=== PATIENT | female | born 1975 | race Hispanic/Latino ===

== ENCOUNTER 2017-04-28 20:51 | Emergency (ER) | payer OTHER ==
[2017-04-28 20:58] VITALS: BP 153/85; PULSE 85; RESP 16; TEMP 97.7; O2SAT 99
[2017-04-28] MEDS ORDERED: Sterile Water 10 ML IV ONE (21:47)
--- NOTE | 2017-04-28 21:51 | ED PDOC ---
HPI: Abdomen Time Seen by Provider: 04/28/17 21:14 Chief Complaint (Nursing): Abdominal Pain Chief Complaint (Provider): Epigastric Pain, Nausea and Vomiting History Per: Patient History/Exam Limitations: no limitations Onset/Duration Of Symptoms: Hrs Outside of [place] travel?: No Current Symptoms Are (Timing): Still Present Context: Food Location Of Pain/Discomfort: Epigastric Associated Symptoms: denies: Urinary Symptoms Additional Complaint(s): Florence Pepper, a 41 year old female, presents to the ED with epigastric pain nausea and vomiting. The patient states she has been vomiting all day today and has had at least six episodes. She describes the epigastric pain as "fullness" or a "severe hunger pain" The patient reports that everytime she eats , she vomits and it it food colored(non bloody). She states she has been very stressed at work due to a stressful project. The patient denies urinary symptoms and states she has had normal bowel movements. Also, she has reported that she has been drinking much more alcohol than usual. Past Medical History Reviewed: Historical Data, Nursing Documentation, Vital Signs Vital Signs: Last Vital Signs Temp 97.7 F 04/28/17 20:57 Pulse 85 04/28/17 20:57 Resp 16 04/28/17 20:57 BP 153/85 H 04/28/17 20:57 Pulse Ox 99 04/28/17 22:10 - Medical History PMH: No Chronic Diseases - Family History Family History: States: Unknown Family Hx - Home Medications Home Medications: Ambulatory Orders Medication Instructions Recorded Simethicone/Sod Bicarb/Cit Ac 1 each PO BID #10 pack 04/29/17 [E-Z-GAS II EFF Granules] - Allergies Allergies/Adverse Reactions: Allergies Allergy/AdvReac Type Severity Reaction Status Date / Time No Known Allergies Allergy Verified 04/28/17 20:56 Review of Systems Gastrointestinal: Positive for: Nausea, Vomiting, Abdominal Pain (Epigastric pain) Genitourinary Female: Positive for: Hematuria, Other (Denies all urinary symptoms) Physical Exam - Reviewed Nursing Documentation Reviewed: Yes Vital Signs Reviewed: Yes - Physical Exam Appears: Positive for: Non-toxic, No Acute Distress Head Exam: Positive for: ATRAUMATIC, NORMOCEPHALIC Skin: Positive for: Normal Color, Warm, Dry Eye Exam: Positive for: Normal appearance, EOMI, PERRL ENT: Positive for: Normal ENT Inspection Neck: Positive for: Normal, Painless ROM, Supple Cardiovascular/Chest: Positive for: Regular Rate, Rhythm, Chest Non Tender. Negative for: Tachycardia Respiratory: Positive for: Normal Breath Sounds, Accessory Muscle Use. Negative for: Wheezing, Respiratory Distress Gastrointestinal/Abdominal: Positive for: Soft, Tenderness (Mild tenderness to palpation to epigastrium.). Negative for: Guarding, Rebound Back: Positive for: Normal Inspection Extremity: Positive for: Normal ROM. Negative for: Tenderness, Deformity, Swelling Neurologic/Psych: Positive for: Alert, Oriented, Gait - Laboratory Results Result Diagrams: 04/28/17 21:45 04/28/17 21:45 - ECG O2 Sat by Pulse Oximetry: 99 (RA) Pulse Ox Interpretation: Normal Medical Decision Making Medical Decision Makin:14 Initial Impression: 41 year old female presenting with Gastritis vs Pancreatitis vs Coleolithiasis Initial Plan: * : Alcohol serum * CMP * Lipase * Upreg * Udip * CBC * Protonix 40mg IVP * Zofran inj * Urinalysis * US Gallbladder and Pancreas U/S negative, after giving bicarb/citric acid/simethicone, pt. initially did not have adequate response, gave morphine 2mg which helped slightly, but soon after patient had a large belch and felt much improved. Now tolerating PO and feeling much better, will cancel CT and d/c patient home. Return precautions given. Scribe Attestation Documented by Reena Baca acting as a scribe for Aravind Ching MD. Scribe Attestation All medical record entries made by the Scribe were at my direction and personally dictated by me. I have reviewed the chart and agree that the record accurately reflects my personal performance of the history, physical exam, medical decision making, and the department course for this patient. I have also personally directed, reviewed, and agree with the discharge instructions and disposition. Disposition - Clinical Impression Clinical Impression: Bloating - Patient ED Disposition Is Patient to be Admitted: No - Disposition Referrals: [facility] [Outside] Disposition: Routine/Home Disposition Time: 01:20 Condition: IMPROVED Prescriptions: Simethicone/Sod Bicarb/Cit Ac [E-Z-GAS II EFF Granules] 1 each PO BID #10 pack Instructions: Acute Abdominal Pain (ED), Gas and Bloating (ED)
[2017-04-28] MEDS ORDERED: Sodium Chloride 0.9% 1,000 ML IV STA (21:55)
[2017-04-28 22:00] LABS: RBC URINE 5 /hpf (0-3); URINE BILIRUBIN NEGATIVE (NEGATIVE); URINE BLOOD NEGATIVE (NEGATIVE); URINE COLOR YELLOW (YELLOW); URINE GLUCOSE (UA) NEG (Normal); URINE KETONE NEGATIVE (NEGATIVE); URINE LEUKOCYTE ESTERASE TRACE Leu/uL (Negative); URINE PROTEIN NEGATIVE (NEGATIVE); URINE UROBILINOGEN 0.2-1.0 mg/dL (0.2-1.0); WBC URINE 3 /hpf (0-5)
[2017-04-28 22:03] LABS: BASO # 0.1 K/uL (0.0-0.2); BASO % 0.9 % (0.0-2.0); EOS # 0.4 K/uL (0.0-0.7); EOS % 4.3 % (0.0-4.0); HEMATOCRIT 42.6 % (34.0-47.0); LYMPH # 2.5 K/uL (1.0-4.3); MEAN CELL VOLUME 93.3 fl (81.0-99.0); MEAN CORPUSCULAR HEMOGLOBIN 31.3 pg (27.0-31.0); MEAN CORPUSCULAR HGB CONC 33.5 g/dL (33.0-37.0); MEAN PLATELET VOLUME 6.8 fl (7.2-11.7); MONO # 0.6 K/uL (0.0-0.8); NEUT % 58.8 % (50.0-75.0); NRBC % 0.2 % (0.0-0.0); RED CELL DISTRIBUTION WIDTH 13.1 % (11.5-14.5); WHITE BLOOD COUNT 8.5 K/uL (4.8-10.8)
[2017-04-28 22:08] LABS: ALB/GLOB RATIO 1.6 (1.0-2.1); ALCOHOL SERUM < 10 mg/dl (0-10); ALKALINE PHOSPHATASE 55 U/L (38-126); ALT/SGPT 49 U/L (9-52); AST/SGOT 33 U/L (14-36); BILIRUBIN,TOTAL 0.5 mg/dl (0.2-1.3); BLOOD UREA NITROGEN 20 mg/dl (7-17); CALCIUM 9.9 mg/dL (8.4-10.2); CARBON DIOXIDE 25 mmol/L (22-30); CHLORIDE 101 mmol/L (98-107); GFR AFRICAN-AMERICAN > 60; GLUCOSE,RANDOM 91 mg/dL (65-105); LIPASE 84 U/L (23-300); POTASSIUM 3.9 MMOL/L (3.6-5.0); SODIUM 138 mmol/l (132-148); TOTAL PROTEIN 7.6 G/DL (6.3-8.2)
[2017-04-29] MEDS ORDERED: Alum-Mag Hydrox-Simethicone Susp (30 mL) PO ONE (00:07)
[2017-04-29] MEDS ORDERED: Iohexol 240 (50 ml) PO ONE (00:23)
--- NOTE | 2017-04-29 09:50 | US ---
HISTORY: epigastric, RUQ pain COMPARISON: None. TECHNIQUE: Sonographic evaluation of the abdomen. FINDINGS: LIVER: Measures 15.9 cm. Normal echogenicity of the liver parenchyma. No intrahepatic bile duct dilatation. GALLBLADDER: The gallbladder is not abnormally distended. There is no gallbladder wall edema or pericholecystic fluid. No shadowing or echogenic calculus identified. According to the technologist, the sonographic Leon's sign was not present. COMMON BILE DUCT: Measures 4-5 mm. No stones. No dilatation. PANCREAS: Visualized portions of the pancreas appear unremarkable. RIGHT KIDNEY: Measures 11.4 x 5.2 x 4cm. Normal echogenicity. No calculus, mass, or hydronephrosis. LEFT KIDNEY: Not imaged. SPLEEN: Not imaged. AORTA: No aneurysmal dilatation within the visualized segments of the aorta. IVC: The visualized portions of the IVC appear unremarkable. OTHER FINDINGS: The visualized segments of the portal vein appear patent. IMPRESSION: No acute findings. Please note that this report is in general agreement with the preliminary report provided by [facility].
== END 2017-04-29 01:10 | disposition home or self-care (01) ==
LOC: H.ER 20:51
DX: R10.11 Right upper quadrant pain (principal); R14.0 Abdominal distension (gaseous)

== ENCOUNTER 2017-12-16 08:22 | Emergency (ER) | payer OTHER ==
[2017-12-16 08:50] VITALS: BP 117/77; PULSE 68; RESP 18; TEMP 98.4; O2SAT 100
[2017-12-16 08:51] VITALS: BMI 25.4
--- NOTE | 2017-12-16 09:18 | ED PDOC ---
HPI: Abdomen Time Seen by Provider: 12/16/17 08:46 Chief Complaint (Nursing): Abdominal Pain Chief Complaint (Provider): Abdominal Pain History Per: Patient History/Exam Limitations: no limitations Onset/Duration Of Symptoms: Days (x 2) Current Symptoms Are (Timing): Still Present Additional Complaint(s): Florence is a 42 year old female who presents to the emergency department complaining of lower abdominal pain x 2 days. Patient states pain is not associated with nausea, vomiting or diarrhea. Denies fever, urinary symptoms or blood in stool. Patient states last menstrual period was 2 weeks ago. PMD: Pallay Past Medical History Reviewed: Historical Data, Nursing Documentation, Vital Signs Vital Signs: Last Vital Signs Temp 98.4 F 12/16/17 08:54 Pulse 68 12/16/17 08:54 Resp 18 12/16/17 08:54 BP 117/77 12/16/17 08:54 Pulse Ox 100 12/16/17 11:48 - Medical History PMH: Asthma, Seizures - Surgical History Surgical History: No Surg Hx - Family History Family History: States: Unknown Family Hx - Home Medications Home Medications: Ambulatory Orders Medication Instructions Recorded traMADol [Ultram] 50 mg PO Q8 #10 tab 12/16/17 - Allergies Allergies/Adverse Reactions: Allergies Allergy/AdvReac Type Severity Reaction Status Date / Time No Known Allergies Allergy Verified 04/28/17 20:56 Review of Systems ROS Statement: Except As Marked, All Systems Reviewed And Found Negative Constitutional: Negative for: Fever Gastrointestinal: Negative for: Nausea, Vomiting, Diarrhea, Hematochezia Genitourinary Female: Negative for: Dysuria, Hematuria Physical Exam - Reviewed Nursing Documentation Reviewed: Yes Vital Signs Reviewed: Yes - Physical Exam Gastrointestinal/Abdominal: Positive for: Soft, Tenderness (Lower Quadrant bilaterally) Back: Negative for: L CVA Tenderness, R CVA Tenderness - Laboratory Results Result Diagrams: 12/16/17 09:10 12/16/17 09:10 - ECG O2 Sat by Pulse Oximetry: 100 (RA) Medical Decision Making Medical Decision Making: Time: 09:03 Plan: - CMP - CBC - Transvaginal Ultrasound - ED Urine Time: 11:22 Transvaginal Ultrasound FINDINGS: UTERUS: Measures 8.3 x 4.2 x 4.3 cm. The uterus is anteverted but normal in size with no discrete myometrial lesion appreciable. ENDOMETRIUM: Measures 9.0 mm in diameter. Unremarkable. CERVIX: Nabothian cysts identified with the cervix otherwise unremarkable. RIGHT OVARY: Measures 6.7 x 4.9 x 5.5 cm. The left ovary is enlarged by 2 complex cystic lesions, both of which appear hypoechoic and have a lace-like internal echoes suspicious for hemorrhagic cyst or possible endometriomas. Color Doppler blood flow was not demonstrated internally in the may represent hemorrhagic cysts. The more inferior measures 3.9 x 3.4 x 3.3 cm. The more superior measures 4.1 x 2.8 x 3.5 cm. LEFT OVARY: Measures 2.8 x 1.4 x 2.3 cm. No solid mass. Normal flow. FREE FLUID: No significant free fluid noted. OTHER FINDINGS: None. IMPRESSION: Enlarged right ovary is identified due to complex cyst suspicious for hemorrhagic cyst or possible endometriomas. Clinically correlate further. Follow -up transvaginal pelvic ultrasound is recommended in 4-8 weeks to demonstrate resolution of these findings or at least reduction in size. Discussed with Od/Workforce Planner Dr. Hernandez. Outpt f/u appropriate Scribe Attestation: Documented by Carlos Lucas, acting as a scribe for Smith Vaughn MD Provider Scribe Attestation: All medical record entries made by the Scribe were at my direction and personally dictated by me. I have reviewed the chart and agree that the record accurately reflects my personal performance of the history, physical exam, medical decision making, and the department course for this patient. I have also personally directed, reviewed, and agree with the discharge instructions and disposition. Disposition - Clinical Impression Clinical Impression: Ovarian cyst - Patient ED Disposition Is Patient to be Admitted: No - Disposition [facility] Disposition: Routine/Home Disposition Time: 11:55 Condition: FAIR Prescriptions: traMADol [Ultram] 50 mg PO Q8 #10 tab Instructions: Ovarian Cyst (ED) Forms: [employer] (Kyrgyz)
[2017-12-16 09:36] LABS: BASO % 0.5 % (0.0-2.0); EOS # 0.2 K/uL (0.0-0.7); HEMOGLOBIN 15.2 g/dL (12.0-16.0); LYMPH # 1.9 K/uL (1.0-4.3); LYMPH % 22.9 % (20.0-40.0); MEAN CELL VOLUME 93.9 fl (81.0-99.0); MEAN CORPUSCULAR HEMOGLOBIN 31.9 pg (27.0-31.0); MEAN PLATELET VOLUME 6.9 fl (7.2-11.7); MONO # 0.5 K/uL (0.0-0.8); MONO % 5.7 % (0.0-10.0); NEUT # 5.8 K/uL (1.8-7.0); NEUT % 68.9 % (50.0-75.0); NRBC % 0.3 % (0.0-0.0); RBC 4.76 Mil/uL (3.80-5.20); RED CELL DISTRIBUTION WIDTH 13.5 % (11.5-14.5); WHITE BLOOD COUNT 8.4 K/uL (4.8-10.8)
[2017-12-16 09:56] LABS: ALB/GLOB RATIO 1.4 (1.0-2.1); ALBUMIN 4.6 g/dL (3.5-5.0); ALT/SGPT 48 U/L (9-52); AST/SGOT 32 U/L (14-36); BLOOD UREA NITROGEN 19 mg/dl (7-17); CALCIUM 9.4 mg/dL (8.4-10.2); GFR AFRICAN-AMERICAN > 60; GFR NON-AFRICAN AMERICAN > 60
--- NOTE | 2017-12-16 11:24 | US ---
HISTORY: r/o cyst COMPARISON: None available. TECHNIQUE: Transvaginal pelvic ultrasound was performed with longitudinal and transverse images submitted for interpretation. FINDINGS: UTERUS: Measures 8.3 x 4.2 x 4.3 cm. The uterus is anteverted but normal in size with no discrete myometrial lesion appreciable. ENDOMETRIUM: Measures 9.0 mm in diameter. Unremarkable. CERVIX: Nabothian cysts identified with the cervix otherwise unremarkable. RIGHT OVARY: Measures 6.7 x 4.9 x 5.5 cm. The left ovary is enlarged by 2 complex cystic lesions, both of which appear hypoechoic and have a lace-like internal echoes suspicious for hemorrhagic cyst or possible endometriomas. Color Doppler blood flow was not demonstrated internally in the may represent hemorrhagic cysts. The more inferior measures 3.9 x 3.4 x 3.3 cm. The more superior measures 4.1 x 2.8 x 3.5 cm. LEFT OVARY: Measures 2.8 x 1.4 x 2.3 cm. No solid mass. Normal flow. FREE FLUID: No significant free fluid noted. OTHER FINDINGS: None. IMPRESSION: Enlarged right ovary is identified due to complex cyst suspicious for hemorrhagic cyst or possible endometriomas. Clinically correlate further. Follow-up transvaginal pelvic ultrasound is recommended in 4-8 weeks to demonstrate resolution of these findings or at least reduction in size.
== END 2017-12-16 12:00 | disposition home or self-care (01) ==
LOC: H.ER 08:22
DX: N83.209 Unspecified ovarian cyst, unspecified side (principal)
CPT/HCPCS: 76830; 80053; 81025; 85025; 96372; 99283; J1885

== ENCOUNTER 2018-01-23 09:19 | Emergency (ER) | payer OTHER ==
[2018-01-23 09:20] VITALS: BMI 25.4
[2018-01-23 09:40] VITALS: BP 126/83; PULSE 87; RESP 18; TEMP 98.3; O2SAT 99
--- NOTE | 2018-01-23 10:01 | ED PDOC ---
HPI: Female Pain Time Seen by Provider: 01/23/18 09:59 Chief Complaint (Nursing): Female Genitourinary Chief Complaint (Provider): abdominal pain History Per: Patient (42 y/o female h/o ovarian cyst/endometrioma here for evaluation of sudden onset lower abdominal pain that began during abdominal work out at gym. Notes LMP 2 weeks ago. Has had sx for removal of right side ovarian cyst 9cm 04/2017. Was seen 11/2017 and noted to have hemorrhagic ovarian cyst but repeat US noted improvement of right sided ovarian cyst and new cyst left side. Has appointment with specialist for endometriosis/ovarian cyst at [facility] tomorrow. Took tramadol at 9:30 with improvement of symptoms/pain. No fevers/chills/diarhrea.) Past Medical History Reviewed: Historical Data, Nursing Documentation, Vital Signs Vital Signs: Last Vital Signs Temp 98.3 F 01/23/18 09:37 Pulse 87 01/23/18 09:37 Resp 18 01/23/18 09:37 BP 126/83 01/23/18 09:37 Pulse Ox 99 01/23/18 09:37 - Medical History PMH: Asthma, Seizures - Family History Family History: States: Unknown Family Hx - Home Medications Home Medications: Ambulatory Orders Medication Instructions Recorded traMADol [Ultram] 50 mg PO Q8 #10 tab 12/16/17 Naproxen 375 mg PO Q8 PRN #21 tablet 01/23/18 - Allergies Allergies/Adverse Reactions: Allergies Allergy/AdvReac Type Severity Reaction Status Date / Time No Known Allergies Allergy Verified 04/28/17 20:56 Review of Systems ROS Statement: Except As Marked, All Systems Reviewed And Found Negative Gastrointestinal: Positive for: Abdominal Pain Physical Exam - Reviewed Nursing Documentation Reviewed: Yes Vital Signs Reviewed: Yes - Physical Exam Appears: Positive for: Well, Non-toxic, No Acute Distress (patient working on laptop in ED) Head Exam: Positive for: ATRAUMATIC, NORMAL INSPECTION, NORMOCEPHALIC Skin: Positive for: Normal Color, Warm, DRY Eye Exam: Positive for: EOMI, Normal appearance, PERRL ENT: Positive for: Normal ENT Inspection Neck: Positive for: Normal, Painless ROM Cardiovascular/Chest: Positive for: Regular Rate, Rhythm Respiratory: Positive for: CNT, Normal Breath Sounds Gastrointestinal/Abdominal: Positive for: Normal Exam, Bowel Sounds, Soft Back: Positive for: Normal Inspection Extremity: Positive for: Normal ROM Neurologic/Psych: Positive for: Alert, Oriented - Laboratory Results Result Diagrams: 01/23/18 10:35 01/23/18 10:35 Urine POC: Negative - ECG O2 Sat by Pulse Oximetry: 99 - Progress ED Course And Treament: us pelvis: IMPRESSION: Two simple fluid collections adjacent to right ovary where previously 2 complex cysts/cystic masses were identified. Likely resolving hemorrhagic ovarian/ paraovarian cyst. The remainder of the examination is unremarkable. Patient re-evaluated 4 hours post initial evaluation. Nontender abdomen. Will f/u with spud grader tomorrow. Disposition - Clinical Impression Clinical Impression: Ovarian cyst - Patient ED Disposition Is Patient to be Admitted: No - Disposition Disposition: Routine/Home Disposition Time: 13:25 Condition: FAIR Prescriptions: Naproxen 375 mg PO Q8 PRN #21 tablet PRN Reason: Pain, Moderate (4-7) Instructions: Ovarian Cysts Forms: [employer] (Irish), [facility] ED School/Work Excuse
[2018-01-23 10:51] LABS: BASO # 0.1 K/uL (0.0-0.2); BASO % 0.8 % (0.0-2.0); EOS # 0.2 K/uL (0.0-0.7); EOS % 2.7 % (0.0-4.0); HEMOGLOBIN 14.5 g/dL (12.0-16.0); LYMPH # 1.7 K/uL (1.0-4.3); LYMPH % 22.4 % (20.0-40.0); MEAN CELL VOLUME 94.1 fl (81.0-99.0); MEAN CORPUSCULAR HEMOGLOBIN 32.8 pg (27.0-31.0); MEAN CORPUSCULAR HGB CONC 34.8 g/dL (33.0-37.0); MEAN PLATELET VOLUME 6.9 fl (7.2-11.7); MONO # 0.5 K/uL (0.0-0.8); MONO % 6.2 % (0.0-10.0); NEUT % 67.9 % (50.0-75.0); NRBC % 0.2 % (0.0-0.0); RBC 4.43 Mil/uL (3.80-5.20); RED CELL DISTRIBUTION WIDTH 13.4 % (11.5-14.5); WHITE BLOOD COUNT 7.4 K/uL (4.8-10.8)
[2018-01-23 10:52] LABS: SQUAMOUS EPITHIAL 3 /hpf (0-5); URINE BACTERIA RARE (<OCC); URINE BILIRUBIN NEGATIVE (NEGATIVE); URINE BLOOD NEGATIVE (NEGATIVE); URINE CLARITY SLIGHTY-CLOUDY (Clear); URINE COLOR YELLOW (YELLOW); URINE GLUCOSE (UA) NEG (Normal); URINE LEUKOCYTE ESTERASE NEG Leu/uL (Negative); URINE NITRATE NEGATIVE (NEGATIVE); URINE PROTEIN 30 mg/dL (NEGATIVE); URINE UROBILINOGEN 0.2-1.0 mg/dL (0.2-1.0)
[2018-01-23 10:57] LABS: ALB/GLOB RATIO 1.4 (1.0-2.1); ALBUMIN 4.3 g/dL (3.5-5.0); ALT/SGPT 40 U/L (9-52); AST/SGOT 42 U/L (14-36); BLOOD UREA NITROGEN 22 mg/dl (7-17); CALCIUM 9.5 mg/dL (8.4-10.2); GFR AFRICAN-AMERICAN > 60; GFR NON-AFRICAN AMERICAN > 60
--- NOTE | 2018-01-23 12:23 | US ---
HISTORY: evaluate for ovarian cyst/ovarian torsion COMPARISON: 12/16/2017 TECHNIQUE: Transabdominal and transvaginal FINDINGS: UTERUS: Measures 7.9 x 4.5 x 3.1 cm. Normal in size and appearance. No fibroid or other mass lesion seen. ENDOMETRIUM: Measures 5 mm in diameter. Unremarkable. CERVIX: No cervical abnormality identified. RIGHT OVARY: Measures 3.8 x 3.1 x 2.6 cm. No solid mass. Normal flow. Adjacent to the right ovary there are 2 simple cysts or collections of simple fluid. These measure 4.5 x 4.3 x 2.2 cm and 2.0 x 1.3 x 1.2 cm. On prior examination of 12/16/2017, there were 2 complex right ovarian/paraovarian cysts identified. These appear to have resolved on this process most likely represents clearing of hemorrhagic cysts, either ovarian or paraovarian. LEFT OVARY: Measures 2.8 x 2.7 x 2.5 cm. No solid mass. Normal flow. FREE FLUID: No significant free fluid noted. OTHER FINDINGS: None. IMPRESSION: Two simple fluid collections adjacent to right ovary where previously 2 complex cysts/cystic masses were identified. Likely resolving hemorrhagic ovarian/ paraovarian cyst. The remainder of the examination is unremarkable.
== END 2018-01-23 14:27 | disposition home or self-care (01) ==
LOC: H.ER 09:19
DX: N83.201 Unspecified ovarian cyst, right side (principal); N83.202 Unspecified ovarian cyst, left side; J45.909 Unspecified asthma, uncomplicated

== ENCOUNTER 2019-01-11 17:21 | Emergency (ER) | payer BC, OTHER ==
[2019-01-11 17:22] VITALS: BMI 25.4
[2019-01-11 17:32] VITALS: BP 140/93; TEMP 97.9
[2019-01-11 17:50] VITALS: O2SAT 99
[2019-01-11 18:18] LABS: BASO # 0.1 K/uL (0.0-0.2); BASO % 0.9 % (0.0-2.0); EOS # 0.3 K/uL (0.0-0.7); EOS % 3.9 % (0.0-4.0); HEMOGLOBIN 14.6 g/dL (12.0-16.0); LYMPH # 2.5 K/uL (1.0-4.3); LYMPH % 30.7 % (20.0-40.0); MEAN CELL VOLUME 95.4 fl (81.0-99.0); MEAN CORPUSCULAR HGB CONC 33.6 g/dL (33.0-37.0); MEAN PLATELET VOLUME 6.8 fl (7.2-11.7); MONO # 0.6 K/uL (0.0-0.8); MONO % 6.9 % (0.0-10.0); NEUT # 4.6 K/uL (1.8-7.0); NEUT % 57.6 % (50.0-75.0); NRBC % 0.2 % (0.0-0.0); RBC 4.55 Mil/uL (3.80-5.20); RED CELL DISTRIBUTION WIDTH 13.6 % (11.5-14.5)
[2019-01-11 18:19] LABS: BLOOD UREA NITROGEN 20 mg/dl (7-17); CALCIUM 9.6 mg/dL (8.4-10.2); GFR NON-AFRICAN AMERICAN > 60
--- NOTE | 2019-01-11 20:17 | ED PDOC ---
- Laboratory Results Result Diagrams: 01/11/19 18:00 01/11/19 18:00 Lab Results: D-Dimer, Quantitative 385 ng/mlDDU (0-230) H 01/11/19 18:45 Troponin I < 0.0120 ng/mL (0.00-0.120) 01/11/19 18:00 - ECG O2 Sat by Pulse Oximetry: 99 Medical Decision Making Medical Decision Making: Time: 1999 --Patient is endorsed to provider by Dr. Benavides, pending US results and final disposition. 2299 --Patient's US negative --Results explained to patient, stressed need for followup --Evodental services discussed, advised outpatient followup --Very well appearing upon discharge Scribe Attestation: Documented by Lilliana Steele, acting as a scribe for Aravind Ching MD. Provider Scribe Attestation: All medical record entries made by the Scribe were at my direction and personally dictated by me. I have reviewed the chart and agree that the record accurately reflects my personal performance of the history, physical exam, medical decision making, and the department course for this patient. I have also personally directed, reviewed, and agree with the discharge instructions and disposition. Disposition - Clinical Impression Clinical Impression: Atypical chest pain - POA Present On Arrival: None - Disposition Referrals: [facility] [Outside] Disposition: Routine/Home Disposition Time: 23:00 Condition: IMPROVED Instructions: Chest Pain That Is Not Caused by the Heart (DC), Anxiety, Adult (DC) Forms: [email or web address] (Burmese)
--- NOTE | 2019-01-11 20:27 | ED PDOC ---
HPI: Chest Pain Time Seen by Provider: 01/11/19 17:43 Chief Complaint (Nursing): Chest Pain Chief Complaint (Provider): Chest Pain History Per: Patient History/Exam Limitations: no limitations Onset/Duration Of Symptoms: Hrs (x1 [employer]) Current Symptoms Are (Timing): Still Present Additional Complaint(s): 43 year old female with pmHx of epilepsy and anxiety, presents to ED for sudden chest pain and tightness, onset 1 hour prior to presentation. She reports associated dizziness, numbness and tingling sensation to left hand that radiated to arm and face. Patient states that symptoms feel similar to her anxiety attacks, however, her anxiety does not last as long nor had bilateral hand numbness and tingling. PCP: none provided NIHSS Stroke Scale - Date/Time Evaluation Performed Date Performed: 01/11/19 Time Performed: 17:45 When Was NIHSS Performed: Baseline - How Severe is the Stroke Level of Consciousness: 0=Alert LOC to Questions: 0=Both comments correct LOC to commands: 0=Obeys both correctly Best Gaze: 0=Normal Visual: 0=No visual loss Facial: 0=Normal Motor Arm - Left: 0=No drift Motor Arm - Right: 0=No drift Motor Leg - Left: 0=No drift Motor Leg - Right: 0=No drift Limb Ataxia: 0=Absent Sensory: 0=Normal Best Language: 0=No aphasia Dysarthia: 0=Normal articulation Extinction & Inattention (Neglect): 0=Normal, no object Score: 0 Past Medical History Reviewed: Historical Data, Nursing Documentation, Vital Signs Vital Signs: Last Vital Signs Temp 97.9 F 01/11/19 17:25 Pulse 95 H 01/11/19 17:45 Resp 12 01/11/19 17:45 BP 140/93 H 01/11/19 17:25 Pulse Ox 99 01/11/19 20:17 - Medical History PMH: Anxiety, Asthma, Seizures - Family History Family History: States: Unknown Family Hx - Home Medications Home Medications: Ambulatory Orders Medication Instructions Recorded Ciprofloxacin [Cipro] 1 tab PO BID #14 tab 06/03/18 oxyCODONE 06/03/18 - Allergies Allergies/Adverse Reactions: Allergies Allergy/AdvReac Type Severity Reaction Status Date / Time No Known Allergies Allergy Verified 01/11/19 17:32 Review of Systems ROS Statement: Except As Marked, All Systems Reviewed And Found Negative ENT: Positive for: Other (left-sided facial numbness) Cardiovascular: Positive for: Chest Pain (and tightness) Neurological: Positive for: Numbness (and tingling sensation of left hand to arm), Dizziness Physical Exam - Reviewed Nursing Documentation Reviewed: Yes Vital Signs Reviewed: Yes - Physical Exam Appears: Positive for: No Acute Distress Head Exam: Positive for: ATRAUMATIC, NORMAL INSPECTION, NORMOCEPHALIC Skin: Positive for: Normal Color Eye Exam: Positive for: Normal appearance, EOMI, PERRL ENT: Positive for: Normal ENT Inspection Neck: Positive for: Normal Cardiovascular/Chest: Positive for: Regular Rate, Rhythm, Chest Non Tender Respiratory: Positive for: Normal Breath Sounds. Negative for: Respiratory Distress Gastrointestinal/Abdominal: Positive for: Normal Exam, Soft. Negative for: Tenderness Back: Positive for: Normal Inspection Extremity: Positive for: Normal ROM (upper/lower). Negative for: Pedal Edema, Calf Tenderness Neurologic/Psych: Positive for: Alert, Oriented, Mood/Affect (tearful). Negative for: Motor/Sensory Deficits - Laboratory Results Result Diagrams: 01/11/19 18:00 01/11/19 18:00 Lab Results: D-Dimer, Quantitative 385 ng/mlDDU (0-230) H 01/11/19 18:45 Troponin I < 0.0120 ng/mL (0.00-0.120) 01/11/19 18:00 - ECG O2 Sat by Pulse Oximetry: 99 (RA) Pulse Ox Interpretation: Normal Medical Decision Making Medical Decision Making: Time: 1742 Initial Plan: Long discussion with patient and family about possible cardiac vs. neuro vs. anxiety ideology. Family prefers work up for cardiac with conserv ative treatment and re-evaluation. Will consider CT for further results if abnormality. Upon further interview, patient admits to increased stress and increasing travel to and from [place] and may have had swelling in her left leg which resolved spontaneously. No leg pain or shortness of breath associated. Patient denies Hx of previous DVT. Risk stratification for DVT initiated. --work up to rule out cardiac ideology for chest pain. * EKG * Labs with troponin and d dimer * CXR * Aspirin 325mg PO * Reassessment Time: 1939 --Labs reviewed: slightly elevated d dimer. US duplex vein LE MAXWELL additionally ordered for leg edema. Patient declines anxiety medications when offered by provider due to multiple medications that she takes daily. 1999 PT to be signed out to Dr. Ching for ultrasound results. Pt appears more comfortable at this time and is eating. ----- Scribe Attestation: Documented by Lilliana Steele, acting as a scribe for Lila Benavides MD. Provider Scribe Attestation: All medical record entries made by the Scribe were at my direction and personally dictated by me. I have reviewed the chart and agree that the record accurately reflects my personal performance of the history, physical exam, medical decision making, and the department course for this patient. I have also personally directed, reviewed, and agree with the discharge instructions and d isposition. Disposition - Clinical Impression Clinical Impression: Atypical chest pain - Patient ED Disposition Is Patient to be Admitted: Transfer of Care - Disposition Referrals: [facility] [Outside] Disposition Time: 20:00 Condition: IMPROVED Instructions: Chest Pain That Is Not Caused by the Heart (DC), Anxiety, Adult (DC) Forms: [employer] (Vincentian)
[2019-01-11 23:34] VITALS: PULSE 93; RESP 16
--- NOTE | 2019-01-12 08:55 | RAD ---
Date of service: 01/11/2019 HISTORY: cough COMPARISON: No prior. TECHNIQUE: Chest PA and lateral FINDINGS: LUNGS: No active pulmonary disease. PLEURA: No significant pleural effusion identified. No pneumothorax apparent. CARDIOVASCULAR: No aortic atherosclerotic calcification present. Normal cardiac size. No pulmonary vascular congestion. OSSEOUS STRUCTURES: No significant abnormalities. VISUALIZED UPPER ABDOMEN: Normal. OTHER FINDINGS: None. IMPRESSION: No active disease.
--- NOTE | 2019-01-12 15:31 | CARD ---
APPROVED REPORT Date of service: 01/11/2019 EKG Measurement Heart [id number] <Conclusion> Normal sinus rhythm Possible Left atrial enlargement Low voltage QRS Left anterior fascicular block Sliow R wave progression V1-4 CCR Abnormal ECG
--- NOTE | 2019-01-13 10:49 | US ---
Date of service: 01/11/2019 PROCEDURE: Bilateral lower extremity venous duplex Doppler. HISTORY: Bilateral leg swelling, slightly elevated D-dimer COMPARISON: None available. TECHNIQUE: Bilateral common femoral, superficial femoral, popliteal and posterior tibial veins were evaluated. Flow was assessed with color Doppler, compressibility, assessment of phasic flow and augmentation response. FINDINGS: COMMON FEMORAL VEIN: Right CFV: Unremarkable. Left CFV: Unremarkable. SUPERFICIAL FEMORAL VEIN: Right SFV: Unremarkable. Left SFV: Unremarkable. POPLITEAL VEIN: Right Popliteal: Unremarkable. Left Popliteal: Unremarkable. POSTERIOR TIBIAL VEIN: Right PTV: Unremarkable. Left PTV: Unremarkable. OTHER FINDINGS: None. IMPRESSION: No evidence of deep venous thrombosis.
== END 2019-01-11 23:02 | disposition home or self-care (01) ==
LOC: H.ER 17:21
DX: R07.89 Other chest pain (principal); F41.9 Anxiety disorder, unspecified; G40.909 Epilepsy, unspecified, not intractable, without status epilepticus